=== PATIENT | female | born 1985 ===

== ENCOUNTER 2021-06-12 08:45 | Inpatient (IN) | payer OTHER ==
[~2021-06-12] VITALS: Ht 170.2 cm; Wt 77.1 kg
== END 2021-06-16 12:14 | disposition home or self-care (01) | DRG 743 ==
LOC: O/R 06-13 05:40 → OB/GYN 06-13 08:45
PROVIDERS: ADMIT Obstetrics & Gynecology; ATTEND Obstetrics & Gynecology
PROC: 0UT20ZZ Resection of Bilateral Ovaries, Open Approach (ICD-10-PCS; 2021-06-13)
PROC: 0UT70ZZ Resection of Bilateral Fallopian Tubes, Open Approach (ICD-10-PCS; 2021-06-13)
PROC: 0UT90ZZ Resection of Uterus, Open Approach (ICD-10-PCS; principal; 2021-06-13 12:00)
DX: D25.1 Intramural leiomyoma of uterus (principal); N80.0 Endometriosis of uterus; N83.8 Other noninflammatory disorders of ovary, fallopian tube and broad ligament; N72 Inflammatory disease of cervix uteri; N92.0 Excessive and frequent menstruation with regular cycle; D64.9 Anemia, unspecified